=== PATIENT | female | born 2000 | race Two or more races ===

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

== ENCOUNTER 2023-05-03 18:46 | Emergency (ER) | payer MEDICAID ==
[~2023-05-03] VITALS: Ht 160 cm; Wt 65.0 kg
[2023-05-03 19:32] LABS: Basophils # (auto) 0.1 10 ^3/uL (0-0.2); Basophils % (auto) 0.4 % (0.0-2.0); Eosinophils # (auto) 0.2 10 ^3/uL (0-0.8); Eosinophils % (auto) 1.3 % (0.0-7.0); Hemoglobin 13.2 g/dL (12.2-16.2); Lymphocytes # (auto) 5.3 10 ^3/uL (0.4-5.4); Lymphocytes % (auto) 37.3 % (10.0-50.0); Mean Corpuscular Hgb Conc. 32.2 g/dL (32.0-36.0); Mean Corpuscular Volume 83.9 fL (80.0-100.0); Monocytes % (auto) 7.3 % (0.0-12.0); Neutrophils # (auto) 7.6 10 ^3/uL (1.6-8.6); Neutrophils % (auto) 53.7 % (37.0-80.0); Red Blood Cells 4.89 10^6/uL (4.0-5.20); Red Cell Distribution Width 13.7 % (11.8-14.3); White Blood Cell 14.1 10^3/uL (4.4-10.8)
[2023-05-03 19:41] LABS: Prothrombin Time 10.5 sec (9.3-11.8)
[2023-05-03 19:43] LABS: Urine Bacteria NONE SEEN /hpf (None Seen); Urine Blood 3+ /uL (Negative); Urine Clarity Clear (Clear); Urine Color Yellow (Yellow); Urine Protein, UAD TRACE (Negative); Urine Specific Gravity 1.016 (1.001-1.035); Urine Urobilinogen Normal (Negative); Urine WBC 9 /hpf (0 - 5); Urine pH 6.5 (5.0-8.0)
[2023-05-03] MEDS ORDERED: MEDR5TAB28 PO (19:52)
[2023-05-03 20:16] VITALS: BP 124/59; PULSE 73; RESP 16; O2SAT 98
== END 2023-05-03 20:18 | disposition home or self-care (01) ==
LOC: ER 18:46
DX: N93.8 Other specified abnormal uterine and vaginal bleeding (principal); R10.2 Pelvic and perineal pain
CPT/HCPCS: 36415; 81001; 84702; 85025; 85610; 85730